=== PATIENT | female | born 1980 | race Caucasian/White ===

== ENCOUNTER 2018-07-26 16:58 | Inpatient (IN) | payer OTHER ==
[2018-07-26] VITALS (12 sets, daily range): BP systolic 112–149; BP diastolic 64–78
[~2018-07-26] VITALS: Ht 175.3 cm; Wt 110.2 kg
[2018-07-26] MEDS ORDERED: LIDOCAINE/SOD BICARB 8.4% SYR ID ONE (17:10)
[2018-07-26] MEDS ORDERED: NORMOSOL R SOLN(*) 1000 ML BAG 1,000 ML IV PRN (17:10)
[2018-07-26] MEDS ORDERED: FAMOTIDINE 20 MG/50 ML PREMIX IVPB ONE (17:10)
[2018-07-26] MEDS ORDERED: MIDAZOLAM 2 MG/2 ML VIAL IVP PRN (17:10)
--- NOTE | 2018-07-26 17:22 | Gen Surgery History & Physical ---
History of Present Illness Chief Complaint RLQ abdominal pain History of Present Illness 38 yo female with acute onset severe, constant RLQ abdominal pain. + NV. Seen by PCP today, with elevated WBC, sent for CT scan which was consistent with acute appendicitis. No prior similar s/s, no hx IBD. History Unable To Obtain Past Medical: PCP notes reviewed Review of Systems Constitutional: Fever Gastrointestinal: Other (see HPI) Psychiatric: Anxiety Exam General Appearance: Alert, Awake, No Acute Distress, Afebrile Neuro: No Gross deficits Cardiovascular: Normal Rhythm & Peripheral Pulses Respiratory: No Respiratory Distress, Clear to Auscultation GI: Other (soft, obese, tender RLQ with + peritoneal s/s) Musculoskeletal: No Weakness/Pain Integumentary: Skin Intact without Lesion / Mass Psych: Alert & Oriented X3, Appropriate Mood & Affect Medical Decision Making EKG / Imaging Monitor Interpretation: Normal Sinus Rhythm Assessment and Plan Problems: (1) Appendicitis Status: Acute Assessment & Plan: Pt recommended to undergo laparoscopic appendectomy. Proc, risks, benefits discussed with pt. She understands risk of bleeding, leak, abscess, damage to viscera, need for secondary intervention. Informed consent signed. Time Spent: > 30 min Venous Thromboembolism VTE Risk Physician Assess for VTE Risk: Yes Patient's VTE Risk: Low VTE Diagnostic Test 2 Days Prior to Admit: No Antithrombotics Is Pt On Any Antithrombotics?: No Prophylaxis Tx Contraindicated Pharmacological Contraindicati: Pt at Low Risk for VTE Mechanical Contraindications: Pt at Low Risk for VTE BREONNA WANG MD Jul 26, 2018 17:22
[2018-07-26] MEDS ORDERED: METOCLOPRAMIDE 10 MG/2 ML SDV ONE (17:45)
[2018-07-26] MEDS ORDERED: ROCURONIUM BROM 10 MG/ML 10 ML ONE (17:45)
[2018-07-26] MEDS ORDERED: ONDANSETRON 4 MG/2 ML VIAL ONE (17:45)
[2018-07-26] MEDS ORDERED: SUCCINYLCHOL CHL 200MG/10ML VL ONE (17:45)
[2018-07-26] MEDS ORDERED: DEXAMETHASONE SOD PHOS 10MG/ML ONE (17:45)
[2018-07-26] MEDS ORDERED: PROPOFOL EMUL(*) 10MG/ML 20 ML 40 ML ONE (17:45)
[2018-07-26] MEDS ORDERED: fentaNYL CITR 100 MCG/2 ML AMP ONE ×3 (17:57→19:22)
[2018-07-26] MEDS ORDERED: KETOROLAC 30 MG/ML VIAL ONE (18:00)
[2018-07-26] MEDS ORDERED: PIPERACILLIN/TAZO*3.375GM VIAL 3.375 GM in NS(*) 0.9% 100 ML ADDVANT BAG 100 ML IVPB SCH (18:00)
[2018-07-26] MEDS ORDERED: SUGAMMADEX SOD 200 MG/2 ML SDV ONE (18:43)
--- NOTE | 2018-07-26 19:06 | Post Operative Progress Note ---
Post Operative Progress Note Date: Jul 26, 2018 Time: 19:02 Surgeon: Breonna Mcdonald MD Police Clerk: none Anesthesia: Dr Anjali KAY Pre-Op Diagnosis: acute appendicitis Post-Op Diagnosis: same, contained perforation Findings: gross fecal contamination RLQ Procedure(s): laparoscopic appendectomy, full note dictated #[id number] Specimen Removed:(May be N/A): appendix Complications: none Total Tourniquet Time: NA Splint: NA Fluids: 900 ml Estimated Blood Loss: < 5 ml Date OP Note Dictated: Jul 26, 2018 Time OP Note Dictated: 18:58 BREONNA MCDONALD MD Jul 26, 2018 19:06
[2018-07-26] MEDS ORDERED: ACETAMINOPHEN 325 MG TAB PO PRN (19:15)
[2018-07-26] MEDS ORDERED: HYDROmorphone PCA 6 MG/30 ML IV PRN (19:15)
[2018-07-26] MEDS ORDERED: ONDANSETRON 4 MG/2 ML VIAL IVP PRN (19:15)
[2018-07-26] MEDS ORDERED: NALOXONE HCL 0.4 MG/ML VIAL IVP PRN (19:15)
[2018-07-26] MEDS ORDERED: ESC10 PO (20:20)
[2018-07-26] MEDS: DOCUSATE SODIUM 100 MG CAP PO SCH (20:57)
[2018-07-26] MEDS: KCL/D1/2NS 20 MEQ 1000 ML 1,000 ML IV PRN (20:59)
[2018-07-26] MEDS: APAP/HYDROCODONE 325/5 TAB PO PRN (21:05)
[2018-07-26] MEDS ORDERED: MORPHINE 2 MG/ML SYR IVP PRN (22:05)
[2018-07-26] MEDS: PIPERACILLIN/TAZO*3.375GM VIAL 3.375 GM in NS(*) 0.9% 100 ML ADDVANT BAG 100 ML IVPB SCH (23:16)
[2018-07-27] VITALS (8 sets, daily range): BP systolic 96–118; BP diastolic 51–72; Ht 175.3 cm; Wt 110.2 kg
[2018-07-27] MEDS: APAP/HYDROCODONE 325/5 TAB PO PRN ×4 (01:16→22:23)
[2018-07-27] MEDS: PIPERACILLIN/TAZO*3.375GM VIAL 3.375 GM in NS(*) 0.9% 100 ML ADDVANT BAG 100 ML IVPB SCH ×4 (05:30→23:39)
[2018-07-27 06:02] LABS: PLATELET COUNT, AUTOMATED 217 K/uL (150-450)
[2018-07-27] MEDS: KCL/D1/2NS 20 MEQ 1000 ML 1,000 ML IV PRN (06:34)
[2018-07-27] MEDS: DOCUSATE SODIUM 100 MG CAP PO SCH ×2 (08:07→21:30)
--- NOTE | 2018-07-27 08:12 | General Surgery Progress Note ---
Subjective Progress Notes Subjective c/o incisional pain, no NV Physical Exam Vital Signs Date Time Temp Pulse Resp B/P (MAP) Pulse Ox O2 Delivery O2 Flow Rate FiO2 07/27/18 08:03 98.0 63 16 117/72 (87) 93 Room Air 07/27/18 05:36 1.0 Intake and Output 07/27/18 06:59 Intake Total 2300 ml Output Total 210 ml Balance 2090 ml Intake IV Total 2300 ml Output Drainage Total 120 ml Other 90 ml General Appearance: Alert, Awake, No Acute Distress, Afebrile Neuro: No Gross deficits Cardiovascular: Normal Rhythm & Peripheral Pulses, Regular Rate and Rhythm Respiratory: No Respiratory Distress, Clear to Auscultation GI: Soft and Non-Tender, Other (ENRIQUE serosang) Musculoskeletal: No Weakness/Pain Integumentary: Skin Intact without Lesion / Mass Psych: Alert & Oriented X3, Appropriate Mood & Affect Result Diagram: 07/27/18 0533 07/27/18532 Monitor Interpretation: Normal Sinus Rhythm Assessment and Plan Problems: (1) Appendicitis Status: Acute Assessment & Plan: Pt recommended to undergo laparoscopic appendectomy. Proc, risks, benefits discussed with pt. She understands risk of bleeding, leak, abscess, damage to viscera, need for secondary intervention. Informed consent signed. 07/27/2018: stable progress, cont Zosyn. Cont full liquids. Pulm toilet and mobilize OOB. Cont ENRIQUE. Time Spent: > 30 min Exam Sepsis Risk: No Definite Risk BREONNA WANG MD Jul 27, 2018 08:12
[2018-07-27] MEDS ORDERED: KCL/D1/2NS 20 MEQ 1000 ML 1,000 ML IV PRN (14:21)
--- NOTE | 2018-07-27 14:31 | OPERATIVE REPORT 1 ---
EVENT DATE: July 26, 2018 SURGEON: Yvonne Mcdonald MD ANESTHESIOLOGIST: Garett Alba MD ANESTHESIA: General endotracheal anesthesia. PREOPERATIVE DIAGNOSIS Acute appendicitis. POSTOPERATIVE DIAGNOSIS Acute appendicitis, perforated appendicitis. PROCEDURE PERFORMED Laparoscopic appendectomy. WOUND CLASS 4 INDICATIONS FOR OPERATION This patient is a 38-year-old female with peritoneal signs localized in the right lower quadrant with markedly abnormal appendix on CT scan. FINDINGS AT TIME OF OPERATION The patient had acute perforated appendicitis with gross fecal contamination in the right lower quadrant. This was completely debrided and irrigated until the effluent was clear. DETAILS OF THE OPERATION On July 26, 2018, patient was brought to the operating room and placed in the supine position. Appropriate lines and monitors were placed. Patient was induced and intubated under general anesthesia without difficulty. She was then prepped and draped in the usual sterile manner. Pneumoperitoneum was established at the infraumbilical position using standard open technique. Skin, subcutaneous, and fascial tissues were opened under direct vision using sharp dissection as well as electrocautery. The peritoneal cavity was entered, and the Yoly trocar was inserted and held in place with two stay sutures of #1 Vicryl. Under direct vision, two additional trocars were placed, a 5 mm along the lower midline and another 12 mm in the right lower quadrant. The turbid fluid in the pelvis was irrigated free, and the appendix was identified in the right lower quadrant. The findings are as stated above. The mesoappendix was opened at the base of the appendix, and the mesoappendix was then divided with the laparoscopic stapler. The appendix was then divided with the bowel load of the laparoscopic stapler. The appendix was placed in a pouch and removed from the abdominal cavity. The operative field was hemostatic. This was then irrigated copiously with 1 L of sterile saline, and no further gross fibrinous or fecal contamination was identified. A 19 mm Yunior-Moody drain was then placed through the lower trocar site and along the operative field. The fascia at the right lower quadrant was closed with the Corey-Froylan device. All trocars were removed under direct vision, and the sites were hemostatic. Pneumoperitoneum was evacuated. Fascia closed at the infraumbilical level with the two stay sutures. Wounds were infiltrated with a total of 40 mL of 0.25% Marcaine without epinephrine. Wounds were then dressed with Mastisol, Steri- Strips, and dry, sterile gauze. Patient was then extubated and taken to recovery room in stable condition. She tolerated the procedure well. Estimated blood loss was minimal. Final sponge and needle counts were correct times two. MTDD
[2018-07-27] MEDS ORDERED: DIAZEPAM 10 MG TAB PO ONE (17:05)
[2018-07-27] MEDS: ESCITALOPRAM OXALATE 10 MG TAB PO SCH (21:26)
[2018-07-27] MEDS: ENOXAPARIN 40 MG/0.4ML SYR SC SCH (21:27)
[2018-07-28] MEDS: PIPERACILLIN/TAZO*3.375GM VIAL 3.375 GM in NS(*) 0.9% 100 ML ADDVANT BAG 100 ML IVPB SCH ×3 (05:39→18:11)
[2018-07-28] MEDS: APAP/HYDROCODONE 325/5 TAB PO PRN ×2 (05:39→10:24)
[2018-07-28 05:42] VITALS: BP 107/63
[2018-07-28 05:48] LABS: PLATELET COUNT, AUTOMATED 196 K/uL (150-450)
--- NOTE | 2018-07-28 07:42 | General Surgery Progress Note ---
Subjective Progress Notes Subjective feels a lil better, up in halls without difficulty, appetite still diminished. No NV, + flatus Physical Exam Vital Signs Date Time Temp Pulse Resp B/P (MAP) Pulse Ox O2 Delivery O2 Flow Rate FiO2 07/28/18 05:42 98.0 74 18 107/63 (78) 95 Nasal Cannula 1.0 Intake and Output 07/28/18 07:00 Intake Total 2574 ml Output Total 90 ml Balance 2484 ml Intake Oral 1270 ml IV Total 1304 ml Output Drainage Total 90 ml # Voids 3 General Appearance: Alert, Awake, No Acute Distress, Afebrile Neuro: No Gross deficits Cardiovascular: Normal Rhythm & Peripheral Pulses Respiratory: No Respiratory Distress, Clear to Auscultation GI: Soft and Non-Tender, Other (incisions CDI, ENRIQUE serosang) Musculoskeletal: No Weakness/Pain Extremities: Soft and Non Tender, Warm, Pulses, Perfused, Other (no CCE) Integumentary: Skin Intact without Lesion / Mass Psych: Alert & Oriented X3, Appropriate Mood & Affect Result Diagram: 07/28/18 0537 07/27/18 0533 Monitor Interpretation: Normal Sinus Rhythm Assessment and Plan Problems: (1) Appendicitis Status: Acute Assessment & Plan: Pt recommended to undergo laparoscopic appendectomy. Proc, risks, benefits discussed with pt. She understands risk of bleeding, leak, abscess, damage to viscera, need for secondary intervention. Informed consent signed. 07/27/2018: POD#1 stable progress, cont Zosyn. Cont full liquids. Pulm toilet and mobilize OOB. Cont ENRIQUE. 07/28/2018: POD#2 Stable.Cont Zosyn. Adv to full liq slow as brandy. DC ENRIQUE given low output. WBC improved. Time Spent: > 30 min Exam Sepsis Risk: No Definite Risk Problem Qualifiers (1) Appendicitis: Appendicitis type: acute appendicitis Acute appendicitis type: with localized peritonitis Appendicitis perforation presence: with perforation Appendicitis abscess presence: without abscess BREONNA WANG MD Jul 28, 2018 07:41
[2018-07-28 07:46] VITALS: BP 107/54
[2018-07-28] MEDS: DOCUSATE SODIUM 100 MG CAP PO SCH ×2 (09:14→20:29)
[2018-07-28 11:23] VITALS: BP 102/63
[2018-07-28 15:23] VITALS: BP 102/60
[2018-07-28 18:54] VITALS: BP 112/67
[2018-07-28] MEDS: ENOXAPARIN 40 MG/0.4ML SYR SC SCH (20:29)
[2018-07-28] MEDS: ESCITALOPRAM OXALATE 10 MG TAB PO SCH (20:29)
[2018-07-29] VITALS (8 sets, daily range): BP systolic 107–142; BP diastolic 60–82
[2018-07-29] MEDS: PIPERACILLIN/TAZO*3.375GM VIAL 3.375 GM in NS(*) 0.9% 100 ML ADDVANT BAG 100 ML IVPB SCH ×2 (00:18→06:01)
[2018-07-29 06:29] LABS: PLATELET COUNT, AUTOMATED 208 K/uL (150-450)
--- NOTE | 2018-07-29 09:01 | General Surgery Progress Note ---
Subjective Patient Complains of: Gastrointestinal: Other (gurgling and rumbling in stomach) Musculoskeletal: Pain (mild pain at incision sites when moving) Physical Exam Vital Signs Date Time Temp Pulse Resp B/P (MAP) Pulse Ox O2 Delivery O2 Flow Rate FiO2 07/29/18 08:14 98.9 77 16 124/82 (96) 94 Nasal Cannula 0.5 Intake and Output 07/29/18 07:00 Intake Total 970 ml Output Total 30 ml Balance 940 ml Intake Oral 120 ml IV Total 850 ml Output Drainage Total 30 ml # Voids 2 General Appearance: Alert, Awake Cardiovascular: Regular Rate and Rhythm Respiratory: Clear to Auscultation, Other (requiring supplemental oxygen when dozes off) GI: Soft and Non-Tender, Other (except at incisions, active bowel sounds, flatus but no bowel movement) Extremities: Soft and Non Tender, Warm Result Diagram: 07/29/18 0608 07/27/18 0533 Monitor Interpretation: Normal Sinus Rhythm Assessment and Plan Problems: (1) Appendicitis Status: Acute Assessment & Plan: Pt recommended to undergo laparoscopic appendectomy. Proc, risks, benefits discussed with pt. She understands risk of bleeding, leak, abscess, damage to viscera, need for secondary intervention. Informed consent signed. 07/27/2018: POD#1 stable progress, cont Zosyn. Cont full liquids. Pulm toilet and mobilize OOB. Cont ENRIQUE. 07/28/2018: POD#2 Stable.Cont Zosyn. Adv to full liq slow as brandy. DC ENRIQUE given low output. WBC improved. 07/29/2018 9am: POD#3 Continue to look good. WBCs normal and afebrile. Convert to oral antibiotics and probably home tomorrow with 7 day (total) course of antibiotics. Pathology noted. Also note elevated glucose. Exam Sepsis Risk: No Definite Risk Problem Qualifiers (1) Appendicitis: Appendicitis type: acute appendicitis Acute appendicitis type: with localized peritonitis Appendicitis perforation presence: with perforation Appendicitis abscess presence: without abscess LONNIE CASTANON MD Jul 29, 2018 09:01
[2018-07-29] MEDS: DOCUSATE SODIUM 100 MG CAP PO SCH ×2 (09:15→20:22)
[2018-07-29] MEDS: AMOX/CLAV 875 MG TAB PO SCH ×2 (10:06→17:01)
--- NOTE | 2018-07-29 15:54 | Antimicrobial Stewardship ---
Antimicrobial Time Out Antimicrobial Stewardship MD Service: Other (GENERAL SURGERY) Indications: Other (POST OP PROPHYLAXIS / APPENDICITIS) Antimicrobial Used AUGMENTIN 875MG PO BID Culture Results: N/A Eligible for PO Conversion Eligable for PO Conversion: Yes (CONVERTED TO PO TODAY 07/29) Reviewed with Provider Reviewed w/ Provider on Rounds: No HAYDER GARCIA Jul 29, 2018 15:54
[2018-07-29] MEDS: ENOXAPARIN 40 MG/0.4ML SYR SC SCH (20:22)
[2018-07-29] MEDS: ESCITALOPRAM OXALATE 10 MG TAB PO SCH (20:22)
[2018-07-30 04:55] VITALS: BP 107/71
[2018-07-30 07:28] VITALS: BP 113/63
[2018-07-30] MEDS: AMOX/CLAV 875 MG TAB PO SCH (08:11)
[2018-07-30] MEDS: DOCUSATE SODIUM 100 MG CAP PO SCH (08:12)
--- NOTE | 2018-07-30 10:43 | General Surgery Progress Note ---
Subjective Progress Notes Subjective "I feel MUCH better this morning!" Physical Exam Vital Signs Date Time Temp Pulse Resp B/P (MAP) Pulse Ox O2 Delivery O2 Flow Rate FiO2 07/30/18 07:28 98.3 66 14 113/63 (80) 96 Nasal Cannula 0.5 Intake and Output 07/30/18 07:00 Intake Total 618 ml Output Total 30 ml Balance 588 ml Intake Oral 618 ml Output Drainage Total 30 ml # Voids 2 General Appearance: Alert, Awake, No Acute Distress Cardiovascular: Regular Rate and Rhythm Respiratory: Clear to Auscultation GI: Soft and Non-Tender, Other (incisions examined and are clean, dry and without cellulitis.) Extremities: Soft and Non Tender, Warm, Other (without edema) Result Diagram: 07/29/18 0608 07/27/18 0533 Monitor Interpretation: Normal Sinus Rhythm Assessment and Plan Problems: (1) Appendicitis Status: Acute Assessment & Plan: Pt recommended to undergo laparoscopic appendectomy. Proc, risks, benefits discussed with pt. She understands risk of bleeding, leak, abscess, damage to viscera, need for secondary intervention. Informed consent signed. 07/27/2018: POD#1 stable progress, cont Zosyn. Cont full liquids. Pulm toilet and mobilize OOB. Cont ENRIQUE. 07/28/2018: POD#2 Stable.Cont Zosyn. Adv to full liq slow as brandy. DC ENRIQUE given low output. WBC improved. 07/29/2018 9am: POD#3 Continue to look good. WBCs normal and afebrile. Convert to oral antibiotics and probably home tomorrow with 7 day (total) course of antibiotics. Pathology noted. Also note elevated glucose. 07/30/2018 10:40am POD#4: Remains afebrile and feels much better than when I saw her yesterday afternoon. tolerating oral antibiotics well which we will continue for a total of 7 days. Discharge instructions given to the patient including diet (regular), pain control ([place] but convert to anti-inflammatories or tylenol alone as soon as possible), mobility and activity ( no lifting >20# until 2 weeks after surgery), follow up (Dr. George Denis 7-10 days after surgery, please call for appointment). Patient may shower and anticipate discharge this afternoon. Exam Sepsis Risk: No Definite Risk Problem Qualifiers (1) Appendicitis: Appendicitis type: acute appendicitis Acute appendicitis type: with localized peritonitis Appendicitis perforation presence: with perforation Appendicitis abscess presence: without abscess LONNIE CASTANON MD Jul 30, 2018 10:43
[2018-07-30] MEDS ORDERED: AMOX1TAB9 PO (10:50)
[2018-07-30] MEDS ORDERED: LOR5/325 PO (10:50)
--- NOTE | 2018-07-30 10:54 | Short(Outpt) Discharge Summary ---
Discharge Summary Reason for Hosp/Final Diag: (1) Appendicitis Status: Acute Hospital Course & Plan: Pt recommended to undergo laparoscopic appendectomy. Proc, risks, benefits discussed with pt. She understands risk of bleeding, leak, abscess, damage to viscera, need for secondary intervention. Informed consent signed. 07/27/2018: POD#1 stable progress, cont Zosyn. Cont full liquids. Pulm toilet and mobilize OOB. Cont ENRIQUE. 07/28/2018: POD#2 Stable.Cont Zosyn. Adv to full liq slow as brandy. DC ENRIQUE given low output. WBC improved. 07/29/2018 9am: POD#3 Continue to look good. WBCs normal and afebrile. Convert to oral antibiotics and probably home tomorrow with 7 day (total) course of antibiotics. Pathology noted. Also note elevated glucose. 07/30/2018 10:40am POD#4: Remains afebrile and feels much better than when I saw her yesterday afternoon. tolerating oral antibiotics well which we will continue for a total of 7 days. Discharge instructions given to the patient including diet (regular), pain control ([place] but convert to anti-inflammatories or tylenol alone as soon as possible), mobility and activity ( no lifting >20# until 2 weeks after surgery), follow up (Dr. George Joseph 7-10 days after surgery, please call for appointment). Patient may shower and anticipate discharge this afternoon. Departure Discharge to: Home Discharge Instructions Home Meds Active Scripts Hydrocodone Bit/Acetaminophen (HYDROCODON-ACETAMINOPHEN 5-325) 1 Each Tablet, 1 EACH PO Q6HR PRN for MODERATE PAIN for 7 Days, #14 TAB Prov:LONNIE CASTANON MD 07/30/18 Reported Medications Escitalopram Oxalate (LEXAPRO) 10 Mg Tab, 10 MG PO HS, TAB 07/26/18 Diet: Regular Activity: No Heavy Lifting ( greater than 20# until 2 weeks after surgery) Copies to: NADEEN JOSEPH MD ; Problem Qualifiers (1) Appendicitis: Appendicitis type: acute appendicitis Acute appendicitis type: with localized peritonitis Appendicitis perforation presence: with perforation Appendicitis abscess presence: without abscess LONNIE CASTANON MD Jul 30, 2018 10:54
== END 2018-07-30 13:45 | disposition home or self-care (01) | DRG 340 ==
LOC: OR 16:58 → OBSVTOIN 20:49 → MED 20:49
PROVIDERS: ADMIT Surgery; ATTEND Surgery
PROC: 0DTJ0ZZ Resection of Appendix, Open Approach (ICD-10-PCS; principal; 2018-07-26 17:55)
DX: K35.32 Acute appendicitis with perforation, localized peritonitis, and gangrene, without abscess (principal); F41.8 Other specified anxiety disorders; E66.9 Obesity, unspecified; Z68.35 Body mass index [BMI] 35.0-35.9, adult
CPT/HCPCS: 36415; 81025; 82310; 82374; 82435; 82565; 82947; 84132; 84295; 84520; 85025; 86140; 88304; J0330; J1100; J1650; J1885; J2250; J2270; J2405; J2543; J2704; J2765; J3010; J3480; J3490; J7050

== ENCOUNTER → 2018-07-26 | Outpatient (CLI) | payer OTHER ==
[~2018-07-26] MED LIST: ESC10 PO; IOPAMIDOL 76% 50 ML INFUS BTL 0 ML ONE; IOPAMIDOL 76% 75 ML INFUS BTL 75 ML ONE
--- NOTE | 2018-07-26 16:51 | RADIOLOGY IMAGING REPORT ---
FACILITY: [facility] PATIENT NAME: Mary Valenzuela : 1980 MR: [id number] V: [id number] EXAM DATE: ORDERING PHYSICIAN: ALDA QUEEN TECHNOLOGIST: Location: [facility] Patient: Mary Valenzuela : 1980 Visit/Account:[id number] Date of Sevice: 07/26/2018 ABDOMEN/PELVIS WITH CONTRAST HISTORY: Right lower quadrant pain TECHNIQUE: Following administration of IV contrast contiguous axial images acquired through the abdom en/pelvis. Coronal and sagittal reformatting also performed. Dose Lowering Technique One of the following dose optimization techniques was utilized in the performance of this exam: Autom ated exposure control; adjustment of the mA and/or kV to the patient's size; or use of an iterative reconstruction technique. Specific details can be referenced in the facility's radiology CT exam ope rational policy. CONTRAST: 75 mL Isovue-370 COMPARISON: None. FINDINGS: Visualized lung bases: Negative. Hepatobiliary: Negative. Spleen: Negative. Adrenals: Negative. Pancreas: Negative. Kidneys ureters or bladder: Negative. Genitalia: Bilateral ovarian cysts. The largest on the right measures 3 cm in diameter the largest on the left measures 1.9 cm in diameter GI: The appendix is very dilated, fluid-filled and measuring up to 1.5 cm in diameter with enhancem ent of the appendiceal wall. There are marked infiltrative changes seen in the periappendiceal fat a nd adjacent free fluid small amount extends into the pelvis. A periappendiceal abscess is not apprec iated. There is however thickening of the wall of the adjacent cecum. Incidentally noted is mild diverticulosis of the sigmoid colon although no CT evidence of acute dive rticulitis Vessels/spaces/nodes: There are several small mesenteric lymph nodes in the right lower quadrant Bones/soft tissues: Incidentally noted are moderate spondylotic changes at L4-5 and L5-S1 Additional findings: None pertinent. IMPRESSION: Findings are consistent with acute appendicitis with a very dilated fluid-filled appendix measuring u p to 1.5 cm in diameter with enhancement of the appendiceal wall. There are marked infiltrative khan ges seen in the periappendiceal fat with adjacent free fluid extending into the pelvis. Is also thic kening of the wall of the adjacent cecum although a discrete periappendiceal abscess is not seen. Incidental note of mild diverticulosis of the sigmoid colon Bilateral ovarian cysts measuring 3 cm on the right and 1.9 cm on the left Results were called to ALDA QUEEN at 07/26/2018 4:40 PM. Report Dictated By: Maritza Banda MD at 07/26/2018 4:41 PM Report E-Signed By: Maritza Banda MD at 07/26/2018 4:48 PM WSN:[email or web address]
== END ==
LOC: CT 15:37
PROVIDERS: ATTEND Physician Assistant
DX: K35.80 Unspecified acute appendicitis (principal); K57.30 Diverticulosis of large intestine without perforation or abscess without bleeding; N83.202 Unspecified ovarian cyst, left side; N83.201 Unspecified ovarian cyst, right side
CPT/HCPCS: 74177; Q9967